=== PATIENT | female | born 1995 | race Caucasian/White ===

== ENCOUNTER 2017-08-31 13:29 | Inpatient (IN) | payer OTHER ==
[~2017-08-31] VITALS: Ht 162.7 cm; Wt 79.5 kg
[2017-10-13] VITALS (16 sets, daily range): BP systolic 112–133; BP diastolic 59–76; PULSE 72–91; TEMP 97.7–97.9
[2017-10-13] MEDS ORDERED: PRENA1 CHEW1 CT1 PO (09:17)
[2017-10-13 09:31] LABS: BASO % 0.3 % (0.0-2.0); EOS % 0.5 % (0-4.0); GRAN # 5.5 (1.4-6.5); GRAN % 74.1 % (42.2-75.2); HEMOGLOBIN 11.7 g/dl (12.5-16.0); LYMPH # 1.5 (1.2-3.4); LYMPH % 19.8 % (20.0-51.0); MEAN CELL VOLUME 83 fl (80.0-100.0); MEAN CORPUSCULAR HEMOGLOBIN 28 pg (27.0-31.0); MEAN CORPUSCULAR HGB CONC 33 g/dl (33.0-37.0); MEAN PLATELET VOLUME 10.3 fl (7.4-10.4); MONO # 0.3 (0.1-0.6); MONO % 4.6 % (1.7-9.3); PLATELET COUNT 263 K/mm3 (130-400); RED BLOOD COUNT 4.24 M/mm3 (4.10-5.30); REDCELL DISTRIBUTION WIDTH-CV 13.2 % (11.5-14.5)
[2017-10-14 00:26] VITALS: BP 120/67; PULSE 75; TEMP 97.7
[2017-10-14 07:32] VITALS: BP 124/70; PULSE 86; TEMP 97.2
[2017-10-14 16:03] VITALS: BP 120/68; PULSE 70; TEMP 98.2
[2017-10-14 21:30] VITALS: BP 113/62; PULSE 71; TEMP 97.7
[2017-10-15 07:17] VITALS: BP 122/74; PULSE 70; TEMP 97.4
[2017-10-15] MEDS ORDERED: PERCOCET 325 MG1 TA2 PO (08:40)
[2017-10-15] MEDS ORDERED: MOTRIN 800800 MG/TAB PO (08:40)
== END 2017-10-15 12:05 | disposition home or self-care (01) | DRG 766 ==
LOC: OB 10-13 08:46 → LDR 10-13 13:29 → OB 10-15 12:05
PROVIDERS: Obstetrics & Gynecology
PROC: 10D00Z1 Extraction of Products of Conception, Low, Open Approach (ICD-10-PCS; principal; 2017-10-13)
DX: O34.211 Maternal care for low transverse scar from previous cesarean delivery (principal); O99.333 Smoking (tobacco) complicating pregnancy, third trimester; Z3A.39 39 weeks gestation of pregnancy; Z37.0 Single live birth
CPT/HCPCS: J0690; J1885; J2270; J2370; J2405; J2590; J7120